=== PATIENT | female | born 1995 | race Caucasian/White ===

== ENCOUNTER 2016-09-15 00:31 | Emergency (ER) | payer SELFPAY ==
[~2016-09-15] VITALS: Ht 165.1 cm; Wt 154.2 kg
[2016-09-15 00:41] VITALS: BP 162/67
== END 2016-09-15 01:16 | disposition left against medical advice (07) ==
LOC: M ED 01:15
DX: Z32.00 Encounter for pregnancy test, result unknown (principal); Z53.29 Procedure and treatment not carried out because of patient's decision for other reasons

== ENCOUNTER 2018-03-04 08:10 | Emergency (ER) | payer OTHER, SELFPAY | END 2018-03-04 08:51 | disposition home or self-care (01) | LOC: M ED 08:10 | DX: M54.5 Low back pain (principal); G89.29 Other chronic pain | CPT/HCPCS: 99282 ==

== ENCOUNTER → 2018-07-29 | Outpatient (REF) | payer BC ==
[2018-07-29 21:51] LABS: APPEARANCE, URINE HAZY (CLEAR); BACTERIA, URINE AUTO 1+ (NEGATIVE); BILIRUBIN, URINE AUTO NEGATIVE (NEGATIVE); BLOOD, URINE BLOOD 1+ (NEGATIVE); COLOR, URINE YELLOW (YELLOW); GLUCOSE, URINE (UA) AUTO NEGATIVE (NEGATIVE); KETONE, URINE AUTO NEGATIVE (NEGATIVE); LEUKOCYTE ESTERASE, URINE AUTO 2+ (NEGATIVE); NITRITE, URINE AUTO NEGATIVE (NEGATIVE); PROTEIN, URINE AUTO NEGATIVE (NEGATIVE); RBC, URINE AUTO 19 /HPF (0-3); SPECIFIC GRAVITY URINE AUTO 1.024 (1.002-1.035); SQUAMOUS EPITHELIAL CELL UR AU 5 /HPF (0-6); WBC, URINE AUTO 71 /HPF (0-3)
== END ==
LOC: M LAB REF 10:52
PROVIDERS: ATTEND Physician Assistant Medical
DX: N39.0 Urinary tract infection, site not specified (principal)

== ENCOUNTER 2019-02-26 22:11 | Emergency (ER) | payer BC ==
[~2019-02-26] VITALS: Ht 165.1 cm; Wt 170.0 kg
[2019-02-26] MEDS ORDERED: TOPA50TA8 PO (22:22)
[2019-02-26] MEDS ORDERED: PHEN-239 PO (22:22)
[2019-02-27] MEDS ORDERED: NORCO, ANEXSIA 5/325MG TABLET (HYDROcodone/ACETAMINOPHEN) PO ONE (00:15)
[2019-02-27] MEDS ORDERED: KETOROLAC 60 MG/2 ML VIAL (J1885) IM ONE (00:45)
[2019-02-27] MEDS ORDERED: NAPR-837 PO (01:04)
[2019-02-27] MEDS ORDERED: AUGM875T28 PO (01:04)
[2019-02-27] MEDS ORDERED: AUGMENTIN 875 MG TAB PO ONE (01:15)
[2019-02-27 01:22] VITALS: BP 114/59
[2019-02-28] MEDS ORDERED: PRED20TA PO (13:53)
== END 2019-02-27 01:25 | disposition home or self-care (01) ==
LOC: M ED 22:11
DX: N61.0 Mastitis without abscess (principal); E66.01 Morbid (severe) obesity due to excess calories
CPT/HCPCS: 84702; 96372; 99283; J1885

== ENCOUNTER 2019-02-28 10:53 | Emergency (ER) | payer BC ==
[~2019-02-28] VITALS: Ht 165.1 cm; Wt 170.0 kg
[~2019-02-28 10:53] MED LIST: AUGM875T28 PO; NAPR-837 PO; PHEN-239 PO; TOPA50TA8 PO
[2019-02-28 11:49] LABS: BASO % 0.3 % (0.0-1.0); EOS # 0.1 10^3/uL (0.0-0.5); EOS % 1.6 % (0.0-3.0); HEMATOCRIT 42.3 % (36.0-47.0); HEMOGLOBIN 14.2 g/dl (12.0-15.5); LYMPH # 1.4 10^3/uL (1.5-5.0); LYMPH % 20.7 % (24.0-44.0); MEAN CORPUSCULAR HEMOGLOBIN 30.2 pg (27.0-33.0); MEAN CORPUSCULAR HGB CONC 33.6 g/dl (32.0-36.5); MONO # 0.6 10^3/uL (0.0-0.8); MONO % 8.6 % (0.0-5.0); NEUTROPHILS # 4.7 10^3/uL (1.5-8.5); NEUTROPHILS % 68.5 % (36.0-66.0); PLATELET COUNT, AUTOMATED 187 10^3/uL (150-450); WHITE BLOOD COUNT 6.9 10^3/uL (4.0-10.0)
[2019-02-28] MEDS ORDERED: KETOROLAC 60 MG/2 ML VIAL (J1885) IM ONE (12:00)
[2019-02-28 12:19] LABS: ALBUMIN 3.9 GM/DL (3.2-5.2); ALT/SGPT 32 U/L (12-78); BILIRUBIN,DIRECT 0.3 MG/DL (0.0-0.2); BILIRUBIN,TOTAL 0.8 MG/DL (0.2-1.0); BLOOD UREA NITROGEN 14 MG/DL (7-18); C REACTIVE PROTEIN QUANTITATIV 0.61 MG/DL (0.00-0.30); CALCIUM LEVEL 9.2 MG/DL (8.5-10.1); CARBON DIOXIDE LEVEL 24 MEQ/L (21-32); CHLORIDE LEVEL 111 MEQ/L (98-107); CREATININE FOR GFR 0.95 MG/DL (0.55-1.30); FREE T4 1.28 NG/DL (0.76-1.46); GLOMERULAR FILTRATION RATE > 60.0 (>60); GLUCOSE, FASTING 101 MG/DL (70-100); POTASSIUM SERUM 4.5 MEQ/L (3.5-5.1); SODIUM LEVEL 142 MEQ/L (136-145); TOTAL PROTEIN 7.6 GM/DL (6.4-8.2)
[2019-02-28 12:23] LABS: ERYTHROCYTE SEDIMENTATION RATE 29 mm/hr (0-20)
[2019-02-28 12:27] LABS: HCG, SERUM QUALITATIVE NEGATIVE (NEGATIVE)
[2019-02-28] MEDS ORDERED: PRED20TA PO (13:53)
[2019-02-28 14:03] VITALS: BP 126/78
--- NOTE | 2019-02-28 14:24 | REP ---
PELVIC ULTRASOUND: Real-time sonographic evaluation of the pelvis performed utilizing transabdominal and endovaginal technique. Urinary bladder is collapsed. The uterus measures 6.8 x 2.9 x 4.0 cm. Endometrial thickness is 6 mm. There is no endometrial fluid collection. The right ovary could not be visualized. Left ovary measures 2.7 x 2.3 x 2.4 cm with no torsion, RI is 0.47 with duplex Doppler evaluation. No adnexal mass or free fluid is seen. IMPRESSION: Essentially negative pelvic ultrasound, although right ovary is not visualized. Electronically Signed by Philip Lobo MD 02/28/2019 05:59 P
== END 2019-02-28 14:06 | disposition home or self-care (01) ==
LOC: M ED 10:53
DX: N64.4 Mastodynia (principal); E66.01 Morbid (severe) obesity due to excess calories; Z87.42 Personal history of other diseases of the female genital tract
CPT/HCPCS: 36415; 76830; 76856; 80048; 80076; 84439; 84443; 84703; 85025; 85652; 86140; 93976; 99284; J1885

== ENCOUNTER 2019-03-30 12:08 | Emergency (ER) | payer OTHER, BC ==
[~2019-03-30] VITALS: Ht 165.1 cm; Wt 158.2 kg
[~2019-03-30 12:08] MED LIST changes: +PRED20TA PO
[2019-03-30] MEDS ORDERED: DEBL1TAB (12:17)
[2019-03-30] MEDS ORDERED: MORPHINE 4 MG/ML 1ML VIAL/SYRINGE (J2270) IV ONE (13:30)
[2019-03-30] MEDS ORDERED: ONDANSETRON 4MG/2ML VIAL (J2405) IV ONE (13:30)
[2019-03-30 14:12] LABS: BASO % 0.5 % (0.0-1.0); EOS # 0.1 10^3/uL (0.0-0.5); EOS % 0.9 % (0.0-3.0); HEMATOCRIT 46.8 % (36.0-47.0); HEMOGLOBIN 15.4 g/dl (12.0-15.5); LYMPH # 1.6 10^3/uL (1.5-5.0); MEAN CORPUSCULAR HEMOGLOBIN 29.8 pg (27.0-33.0); MEAN CORPUSCULAR HGB CONC 32.9 g/dl (32.0-36.5); MEAN CORPUSCULAR VOLUME 90.5 fl (80.0-96.0); MONO # 0.6 10^3/uL (0.0-0.8); MONO % 9.6 % (0.0-5.0); NEUTROPHILS # 4.2 10^3/uL (1.5-8.5); NEUTROPHILS % 63.8 % (36.0-66.0); PLATELET COUNT, AUTOMATED 205 10^3/uL (150-450); RED BLOOD COUNT 5.17 10^6/uL (4.00-5.40); WHITE BLOOD COUNT 6.6 10^3/uL (4.0-10.0)
[2019-03-30 14:37] LABS: BLOOD UREA NITROGEN 12 MG/DL (7-18); CALCIUM LEVEL 9.1 MG/DL (8.5-10.1); CARBON DIOXIDE LEVEL 24 MEQ/L (21-32); CHLORIDE LEVEL 111 MEQ/L (98-107); GLOMERULAR FILTRATION RATE > 60.0 (>60); GLUCOSE, FASTING 89 MG/DL (70-100); POTASSIUM SERUM 3.8 MEQ/L (3.5-5.1); SODIUM LEVEL 142 MEQ/L (136-145)
[2019-03-30 14:46] LABS: HCG, SERUM QUALITATIVE NEGATIVE (NEGATIVE)
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
[2019-03-30] MEDS ORDERED: ACET-683 PO (17:51)
[2019-03-30] MEDS ORDERED: NEOSPORIN TOP OINT 15GM TOP ONE (18:00)
[2019-03-30] MEDS ORDERED: ACETAMINOPHEN 325 MG TAB PO ONE (18:00)
[2019-03-30 18:10] VITALS: BP 129/71
== END 2019-03-30 18:30 | disposition home or self-care (01) ==
LOC: M ED 12:08
DX: S10.93XA Contusion of unspecified part of neck, initial encounter (principal); S60.811A Abrasion of right wrist, initial encounter; S50.811A Abrasion of right forearm, initial encounter; S30.811A Abrasion of abdominal wall, initial encounter; S30.1XXA Contusion of abdominal wall, initial encounter; S40.012A Contusion of left shoulder, initial encounter; S20.212A Contusion of left front wall of thorax, initial encounter; V48.5XXA Car driver injured in noncollision transport accident in traffic accident, initial encounter; Y92.89 Other specified places as the place of occurrence of the external cause; Y93.89 Activity, other specified; Y99.9 Unspecified external cause status; M25.50 Pain in unspecified joint; M54.2 Cervicalgia; M54.9 Dorsalgia, unspecified; R51 Headache; R91.8 Other nonspecific abnormal finding of lung field; Z79.899 Other long term (current) drug therapy
CPT/HCPCS: 36415; 70450; 71250; 72125; 73030; 73090; 73130; 73590; 74176; 80048; 84703; 85025; 96374; 96375; 99285; J2270; J2405

== ENCOUNTER 2020-02-04 20:45 | Emergency (ER) | payer BC, OTHER ==
[~2020-02-04] VITALS: Ht 165.1 cm; Wt 159.2 kg
[~2020-02-04 20:45] MED LIST changes: +ACET-683 PO; +DEBL1TAB
[2020-02-04 20:46] VITALS: BP 134/69
[2020-02-04] MEDS ORDERED: PSEU120T19 PO (22:13)
== END 2020-02-04 22:24 | disposition home or self-care (01) ==
LOC: M ED 20:45
DX: J01.90 Acute sinusitis, unspecified (principal); R07.0 Pain in throat; R51 Headache; Z88.2 Allergy status to sulfonamides

== ENCOUNTER 2020-02-16 19:37 | Emergency (ER) | payer OTHER, BC ==
[~2020-02-16] VITALS: Ht 165.1 cm; Wt 156.4 kg
[~2020-02-16 19:37] MED LIST changes: +PSEU120T19 PO
[2020-02-16] MEDS ORDERED: BOOSTRIX/ADACEL VACCINE (DIPHTH/PERTUSS/ACELL/TETANUS) 0.5ML SYR IM ONE (20:15)
[2020-02-16] MEDS ORDERED: AUGMENTIN 875 MG TAB PO ONE (20:45)
[2020-02-16] MEDS ORDERED: AUGM875T28 PO (20:46)
[2020-02-16 21:01] VITALS: BP 151/69
== END 2020-02-16 21:01 | disposition home or self-care (01) ==
LOC: M ED 19:37
DX: S59.811A Other specified injuries right forearm, initial encounter (principal); S59.812A Other specified injuries left forearm, initial encounter; S49.82XA Other specified injuries of left shoulder and upper arm, initial encounter; S79.821A Other specified injuries of right thigh, initial encounter; W50.3XXA Accidental bite by another person, initial encounter; Y92.89 Other specified places as the place of occurrence of the external cause; Y93.9 Activity, unspecified; Y99.0 Civilian activity done for income or pay; Z88.2 Allergy status to sulfonamides

== ENCOUNTER 2020-04-17 12:21 | Emergency (ER) | payer BC, OTHER ==
[~2020-04-17] VITALS: Ht 165.1 cm; Wt 165.7 kg
[2020-04-17] MEDS ORDERED: KETOROLAC TROMETHAMINE 10 MG TAB PO ONE (13:45)
[2020-04-17 14:18] LABS: BASO % 0.5 % (0.0-1.0); EOS # 0.1 10^3/uL (0.0-0.5); EOS % 1.9 % (0.0-3.0); HEMATOCRIT 47.2 % (36.0-47.0); HEMOGLOBIN 15.3 g/dl (12.0-15.5); LYMPH # 2.7 10^3/uL (1.5-5.0); LYMPH % 36.2 % (24.0-44.0); MEAN CORPUSCULAR HEMOGLOBIN 28.7 pg (27.0-33.0); MEAN CORPUSCULAR HGB CONC 32.4 g/dl (32.0-36.5); MEAN CORPUSCULAR VOLUME 88.6 fl (80.0-96.0); MONO # 0.5 10^3/uL (0.0-0.8); MONO % 7.1 % (0.0-5.0); NEUTROPHILS % 53.9 % (36.0-66.0); RED BLOOD COUNT 5.33 10^6/uL (4.00-5.40); WHITE BLOOD COUNT 7.4 10^3/uL (4.0-10.0)
[2020-04-17 14:46] LABS: ALBUMIN 3.8 GM/DL (3.2-5.2); ALT/SGPT 18 U/L (12-78); BILIRUBIN,DIRECT 0.2 MG/DL (0.0-0.2); BILIRUBIN,TOTAL 0.4 MG/DL (0.2-1.0); CK-MB VALUE MASS < 1.0 NG/ML (<3.6); CPK CREATINE PHOSPHOKINASE 79 U/L (26-192); LIPASE 79 U/L (73-393); MB/CK RELATIVE INDEX 1.27 (< OR =4); TOTAL PROTEIN 8.2 GM/DL (6.4-8.2); TROPONIN I < 0.02 NG/ML (< 0.10)
--- NOTE | 2020-04-17 14:59 | REP ---
INDICATION: left upper chest/shoulder pain COMPARISON: None. TECHNIQUE: PA and lateral. FINDINGS: The mediastinum and cardiac silhouette are normal. The lung mark are clear and without acute consolidation, effusion, or pneumothorax. The skeletal structures are intact and normal. IMPRESSION: No acute cardiopulmonary process. <Electronically signed by Wild Cuellar > 04/17/20 [id number]
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
[2020-04-17] MEDS ORDERED: CYCL5TAB PO (15:14)
[2020-04-17] MEDS ORDERED: NAPR-837 PO (15:14)
[2020-04-17 15:24] VITALS: BP 136/70
== END 2020-04-17 15:28 | disposition home or self-care (01) ==
LOC: M ED 12:21
DX: R07.1 Chest pain on breathing (principal); M54.2 Cervicalgia; M25.512 Pain in left shoulder; R51.9 Headache, unspecified; R53.83 Other fatigue; Z88.2 Allergy status to sulfonamides

== ENCOUNTER → 2020-06-02 | Outpatient (CLI) | payer BC ==
[~2020-06-02] MED LIST changes: +CYCL5TAB PO
[2020-06-02 09:39] LABS: HEMOGLOBIN A1c 4.7 %
== END ==
LOC: M LAB 08:04
PROVIDERS: ATTEND Surgery
DX: Z86.39 Personal history of other endocrine, nutritional and metabolic disease (principal)

== ENCOUNTER 2020-10-24 10:28 | Emergency (ER) | payer BC ==
[~2020-10-24] VITALS: Ht 165.1 cm; Wt 150.4 kg
[2020-10-24 10:34] VITALS: BP 144/83
[2020-10-24] MEDS ORDERED: TOPI50TA9 (10:58)
[2020-10-24] MEDS ORDERED: PHEN-239 (10:58)
[2020-10-24] MEDS ORDERED: DEBL1TAB (10:58)
== END 2020-10-24 11:28 | disposition home or self-care (01) ==
LOC: M ED 10:28
DX: J01.80 Other acute sinusitis (principal); E66.9 Obesity, unspecified; Z79.899 Other long term (current) drug therapy; Z88.2 Allergy status to sulfonamides; Z88.1 Allergy status to other antibiotic agents

== ENCOUNTER → 2021-02-08 | Outpatient (CLI) | payer BC ==
[~2021-02-08] MED LIST changes: +PHEN-239; +TOPI50TA9
[2021-02-08 11:14] LABS: BASO % 0.2 % (0.0-1.0); EOS # 0.1 10^3/uL (0.0-0.5); EOS % 2.4 % (0.0-3.0); HEMATOCRIT 45.7 % (36.0-47.0); HEMOGLOBIN 14.8 g/dl (12.0-15.5); LYMPH # 1.6 10^3/uL (1.5-5.0); LYMPH % 33.3 % (24.0-44.0); MEAN CORPUSCULAR HGB CONC 32.4 g/dl (32.0-36.5); MEAN CORPUSCULAR VOLUME 86.4 fl (80.0-96.0); MONO # 0.5 10^3/uL (0.0-0.8); MONO % 9.4 % (2.0-8.0); NEUTROPHILS # 2.7 10^3/uL (1.5-8.5); NEUTROPHILS % 54.5 % (36.0-66.0); PLATELET COUNT, AUTOMATED 186 10^3/uL (150-450); RED BLOOD COUNT 5.29 10^6/uL (4.00-5.40); WHITE BLOOD COUNT 4.9 10^3/uL (4.0-10.0)
[2021-02-08 11:42] LABS: HEMATOCRIT 45.7 % (36.0-47.0)
[2021-02-08 12:53] LABS: ALBUMIN 3.4 GM/DL (3.2-5.2); ALT/SGPT 45 U/L (12-78); BILIRUBIN,TOTAL 0.6 MG/DL (0.2-1.0); BLOOD UREA NITROGEN 9 MG/DL (7-18); CALCIUM LEVEL 8.8 MG/DL (8.5-10.1); CARBON DIOXIDE LEVEL 23 MEQ/L (21-32); CHLORIDE LEVEL 109 MEQ/L (98-107); CREATININE FOR GFR 0.76 MG/DL (0.55-1.30); FERRITIN 13 NG/ML (8-252); GLOMERULAR FILTRATION RATE > 60.0 (>60); GLUCOSE, FASTING 90 MG/DL (70-100); IRON (FE) 47 UG/DL (50-170); MAGNESIUM LEVEL 2.1 MG/DL (1.8-2.4); PHOSPHORUS LEVEL 2.5 MG/DL (2.5-4.9); POTASSIUM SERUM 3.7 MEQ/L (3.5-5.1); SODIUM LEVEL 143 MEQ/L (136-145); TOTAL 25(OH) VITAMIN D 24.2 NG/ML (30.0-100.0); TOTAL PROTEIN 7.3 GM/DL (6.4-8.2); VITAMIN B12 LEVEL 1075 PG/ML (247-911)
== END ==
LOC: M LAB 10:22
PROVIDERS: ATTEND Surgery
DX: K91.2 Postsurgical malabsorption, not elsewhere classified (principal); E55.9 Vitamin D deficiency, unspecified; Z98.84 Bariatric surgery status

== ENCOUNTER → 2021-07-09 | Outpatient (CLI) | payer BC | LOC: M LAB 10:17 | PROVIDERS: ATTEND Obstetrics & Gynecology | DX: Z34.81 Encounter for supervision of other normal pregnancy, first trimester (principal); Z3A.00 Weeks of gestation of pregnancy not specified; Z81.0 Family history of intellectual disabilities ==

== ENCOUNTER → 2021-08-26 | Outpatient (CLI) | payer BC | LOC: M WHC 09:30 | PROVIDERS: ATTEND Specialist | DX: Z36.89 Encounter for other specified antenatal screening (principal); Z3A.19 19 weeks gestation of pregnancy; O32.1XX0 Maternal care for breech presentation, not applicable or unspecified ==

== ENCOUNTER → 2021-08-26 | Outpatient (REF) | payer BC | LOC: M SFHCWAGY 13:11 | PROVIDERS: ATTEND Obstetrics & Gynecology | DX: Z12.4 Encounter for screening for malignant neoplasm of cervix (principal); N73.9 Female pelvic inflammatory disease, unspecified ==

== ENCOUNTER → 2021-08-30 | Outpatient (CLI) | payer BC ==
[2021-08-30 11:57] LABS: HEMATOCRIT 40.8 % (36.0-47.0); HEMOGLOBIN 14.5 g/dl (12.0-15.5); MEAN CORPUSCULAR HEMOGLOBIN 31.7 pg (27.0-33.0); MEAN CORPUSCULAR HGB CONC 35.5 g/dl (32.0-36.5); MEAN CORPUSCULAR VOLUME 89.1 fl (80.0-96.0); PLATELET COUNT, AUTOMATED 160 10^3/uL (150-450); RED BLOOD COUNT 4.58 10^6/uL (4.00-5.40); WHITE BLOOD COUNT 6.5 10^3/uL (4.0-10.0)
[2021-08-30 13:14] LABS: HEPATITIS C VIRUS ABY INDEX 0.2 INDEX (<0.8); HIV 1&2 SCREEN CENTAUR NEGATIVE (NEGATIVE)
[2021-08-30 13:57] LABS: GC DNA AMPLIFICATION NEGATIVE (NEGATIVE)
== END ==
LOC: M LAB 10:01
PROVIDERS: ATTEND Obstetrics & Gynecology
DX: Z34.01 Encounter for supervision of normal first pregnancy, first trimester (principal); Z36.89 Encounter for other specified antenatal screening; Z3A.10 10 weeks gestation of pregnancy

== ENCOUNTER → 2024-12-13 | Outpatient (REF) | payer OTHER ==
[~2024-12-13] MED LIST changes: -CYCL5TAB PO; +CYCL5TAB4 PO; -PHEN-239; -PHEN-239 PO; +PHEN37.511; +PHEN37.511 PO; +TOPI-21; -TOPI50TA9
== END ==
LOC: M SFHCLERA 09:45
PROVIDERS: ATTEND Student in an Organized Health Care Education/Training Program
DX: Z01.89 Encounter for other specified special examinations (principal); K75.3 Granulomatous hepatitis, not elsewhere classified

== ENCOUNTER → 2024-12-13 | Outpatient (REF) | payer OTHER ==
[2024-12-13 17:33] LABS: BASO # 0.0 10^3/uL (0.0-0.2); BASO % 0.5 % (0.0-1.0); EOS # 0.1 10^3/uL (0.0-0.5); EOS % 1.9 % (0.0-3.0); LYMPH # 2.1 10^3/uL (1.5-5.0); LYMPH % 36.8 % (24.0-44.0); MONO # 0.5 10^3/uL (0.0-0.8); MONO % 7.9 % (2.0-8.0); NEUTROPHILS # 3.0 10^3/uL (1.5-8.5); NEUTROPHILS % 52.6 % (36.0-66.0); PLATELET COUNT, AUTOMATED 222 10^3/uL (150-450)
[2024-12-13 17:51] LABS: ESTIMATED AVERAGE GLUCOSE 103.0 MG/DL (60-110)
[2024-12-13 17:59] LABS: ALT/SGPT 15 U/L (7.0-40); AST/SGOT 17 U/L (<34); CALCIUM LEVEL 9.0 MG/DL (8.5-10.1); CARBON DIOXIDE LEVEL 26 MMOL/L (20-31); CHLORIDE LEVEL 105 MMOL/L (98-107); CHOLESTEROL LEVEL 109 MG/DL (<200); CHOLESTEROL RISK RATIO 2.37 (<5); CREATININE FOR GFR 0.77 MG/DL (0.55-1.30); GLOMERULAR FILTRATION RATE > 90.0 (>60); LDL CHOLESTEROL 50.0 MG/DL (<100); NON-HDL-C 63.2 MG/DL; POTASSIUM SERUM 4.5 MMOL/L (3.5-5.1); SODIUM LEVEL 140 MMOL/L (136-145); TRIGLYCERIDES LEVEL 66 MG/DL (<150)
[2024-12-13 18:00] LABS: FREE T4 1.05 NG/DL (0.89-1.76)
== END ==
LOC: M LAB REF 17:03
PROVIDERS: ATTEND Student in an Organized Health Care Education/Training Program
DX: Z01.89 Encounter for other specified special examinations (principal)

== ENCOUNTER → 2024-12-16 | Outpatient (CLI) | payer OTHER | LOC: M RAD 07:14 | PROVIDERS: ATTEND Student in an Organized Health Care Education/Training Program | DX: K75.3 Granulomatous hepatitis, not elsewhere classified (principal) ==

== ENCOUNTER 2025-04-08 07:09 | Day surgery (SDC) | payer OTHER ==
[~2025-04-08] VITALS: Ht 165.1 cm; Wt 147.4 kg
[~2025-04-08 07:09] MED LIST changes: +PRAZ1CAP PO; +ZOLO50TA PO
[2025-04-08 07:46] LABS: PLATELET COUNT, AUTOMATED 192 10^3/uL (150-450)
[2025-04-08] MEDS ORDERED: FAMOTIDINE 20 MG/2 ML VIAL IVP ONE (07:50)
[2025-04-08] MEDS ORDERED: LR 1,000 ML IV SCH (07:50)
[2025-04-08] MEDS ORDERED: ACETAMINOPHEN 1000MG/100ML IV BAG As Ordered ONE (08:01)
[2025-04-08] MEDS ORDERED: LIDOCAINE 2% 100 MG/5 ML SDV (FOR ANES.) As Ordered ONE (08:01)
[2025-04-08] MEDS ORDERED: dexAMETHasone 4 MG/ML 1 ML VIAL As Ordered ONE (08:02)
[2025-04-08] MEDS ORDERED: ONDANSETRON 4MG/2ML VIAL As Ordered ONE (08:02)
[2025-04-08] MEDS ORDERED: KETOROLAC 30 MG/ML 1 ML VIAL As Ordered ONE (08:02)
[2025-04-08] MEDS ORDERED: MIDAZOLAM INJ 2 MG/2 ML VIAL As Ordered ONE (08:03)
[2025-04-08] MEDS: SCOPOLAMINE 1MG TRANSDERMAL PATCH TOP ONE (08:05)
[2025-04-08] MEDS ORDERED: SUGAMMADEX SODIUM 500 MG/5 ML VIAL As Ordered ONE (08:07)
[2025-04-08] MEDS ORDERED: ROCURONIUM BROMIDE 50MG/5ML VIAL As Ordered ONE (08:07)
[2025-04-08] MEDS ORDERED: ALBUTEROL 6.7 GM INHALER **FOR ANES. CART/OMNICELL ONLY As Ordered ONE (09:04)
[2025-04-08] MEDS ORDERED: ESMOLOL 100 MG/10 ML VIAL As Ordered ONE (09:12)
[2025-04-08] MEDS ORDERED: HYDROMORPHONE HCL 0.5 MG/0.5 ML SYRINGE IV PRN (10:00)
[2025-04-08 10:42] VITALS: BP 149/79; TEMP 97.8; O2SAT 99
== END 2025-04-08 11:06 | disposition home or self-care (01) ==
LOC: M SDC 07:09
PROVIDERS: ATTEND Obstetrics & Gynecology
DX: Z30.2 Encounter for sterilization (principal); Z79.899 Other long term (current) drug therapy; Z98.84 Bariatric surgery status; Z88.2 Allergy status to sulfonamides; Z88.0 Allergy status to penicillin; Z88.5 Allergy status to narcotic agent
CPT/HCPCS: 36415; 58661; 81025; 85027; 86850; 86900; 86901; 88302; J0131; J0665; J1100; J1805; J1885; J2250; J2405; J3010